=== PATIENT | female | born 1970 | race Caucasian/White ===

== ENCOUNTER 2023-08-11 10:30 | Emergency (ER) | payer OTHER ==
[2023-08-11 10:38] VITALS: TEMP 98.7; BMI 39.0
[2023-08-11] MEDS ORDERED: KETOROLAC TROMETHAMINE 15 MG/ML VIAL ONE (11:29)
[2023-08-11] MEDS: KETOROLAC TROMETHAMINE 15 MG/ML VIAL IVPUSH ONE ×2 (11:30→11:31)
[2023-08-11 11:42] LABS: BASO % 0.5 % (0-2.0); EOS % 1.4 % (0-4.5); HEMATOCRIT 39.1 % (32.4-45.2); HEMOGLOBIN 13.5 GM/dL (10.7-15.3); LYMPH % 31.3 % (8-40); MCH 29.3 pg (25.7-33.7); MCHC 34.4 g/dl (32.0-36.0); MEAN PLT VOLUME 8.9 fl (7.5-11.1); MONO % 5.2 % (3.8-10.2); NEUT % 61.6 % (42.8-82.8); PLATELET COUNT 303 10^3/uL (134-434); RBC 4.61 M/mm3 (3.60-5.2); RDW 13.3 % (11.6-15.6); WHITE BLOOD COUNT 8.9 K/mm3 (4.0-10.0)
[2023-08-11 11:48] LABS: INR 1.16 (0.83-1.09); PROTHROMBIN TIME (PATIENT) 13.4 SEC (9.7-13.0)
[2023-08-11 11:50] LABS: ACTIVATED PTT 31.3 SECONDS (25.2-36.5)
[2023-08-11] MEDS ORDERED: LIDOCAINE 4% PATCH TP ONE (11:51)
[2023-08-11] MEDS ORDERED: METHOCARBAMOL 500 MG TABLET ONE (11:51)
[2023-08-11] MEDS: METHOCARBAMOL 500 MG TABLET PO ONE (11:55)
[2023-08-11] MEDS: LIDOCAINE 4% PATCH TP ONE (11:55)
[2023-08-11 12:01] LABS: POTASSIUM 4.3 mmol/L (3.5-5.1)
[2023-08-11 12:04] LABS: ALBUMIN 3.6 g/dl (3.4-5.0); CALCIUM 10.1 mg/dL (8.5-10.1)
[2023-08-11 12:07] LABS: CREATININE 0.7 mg/dL (0.55-1.3)
[2023-08-11 12:09] LABS: BILIRUBIN,TOTAL 0.5 mg/dL (0.2-1); TOT PROT 8.1 g/dl (6.4-8.2)
[2023-08-11 12:13] VITALS: BP 131/78; PULSE 43; RESP 17
[2023-08-11] MEDS ORDERED: LIDOCAINE PATCH REMOVAL MC SCH (22:00)
== END 2023-08-11 12:54 | disposition home or self-care (01) ==
LOC: JER 10:30
PROC: 3E0303Z Introduction of Anti-inflammatory into Peripheral Vein, Open Approach (ICD-10-PCS; principal; 2023-08-11)
DX: R07.89 Other chest pain (principal); M54.9 Dorsalgia, unspecified; R11.0 Nausea; R00.1 Bradycardia, unspecified; Z20.822 Contact with and (suspected) exposure to COVID-19
CPT/HCPCS: 0241U-QW; 36415; 71046-TC-FY; 80053; 84484; 85025; 85610; 85730; 93005; 93010; 99285-25